=== PATIENT | male | born 1970 | race Two or more races ===

== ENCOUNTER → 2024-09-24 | Outpatient (CLI) | payer BC, SELFPAY ==
[2024-09-24 09:05] LABS: Collection Type, Urine Clean Catch; Squamous Epithelial Cell,Urine 0 /hpf (0-5)
[2024-09-24 09:31] LABS: Basophils % (Auto) 1 % (0-2.5); Eosinophils # (Auto) 0.1 Thou/mm3 (0.0-0.5); Eosinophils % (Auto) 2 % (0-10); Hematocrit 43.7 % (41.0-53.0); Hemoglobin 13.5 g/dL (13.5-16.0); Immature Granulocytes % (Auto) 0 % (0-0); Immature Granulocytes Auto 0.02 Thou/mm3 (0.00-0.00); Lymphocytes # (Auto) 1.9 Thou/mm3 (1.0-4.8); Lymphocytes % (Auto) 32 % (10-50); Mean Corpuscular HGB Conc 30.9 g/dl (31.0-37.0); Mean Corpuscular Hemoglobin 20.8 pg (25.0-35.0); Mean Corpuscular Volume 67 fL (80-100); Monocytes # (Auto) 0.6 Thou/mm3 (0.0-0.8); Monocytes % (Auto) 10 % (0-12); Neutrophils # (Auto) 3.2 Thou/mm3 (1.8-7.7); Neutrophils % (Auto) 55 % (37-80); Nucleated Red Blood Cell % 0 /100 WBC (0); Platelet Count 325 Thou/mm3 (140-440); RDW Standard Deviation 38.6 fL (35.1-43.9); White Blood Count 5.8 Thou/mm3 (3.8-10.6)
[2024-09-24 09:42] LABS: Glucose Estimated Average 126 mg/dL (80-131)
[2024-09-24 09:59] LABS: Bilirubin,Urine Negative (Negative); Blood,Urine Negative (Negative); Clarity,Urine Clear (Clear/Hazy); Color,Urine Yellow (Lt Yel-Yel); Glucose, Urine Negative (Negative); Ketones,Urine Negative (Negative); Leukocyte Esterase,Urine Negative (Negative); Nitrite,Urine Negative (Negative); Protein,Urine Negative (Neg - Trace); RBC,Urine 2 /hpf (0-3); Specific Gravity,Urine 1.022 (1.001-1.035); Urobilinogen,Urine Negative mg/dL (0.0-1.0); WBC,Urine < 1 /hpf (0-5)
[2024-09-24 10:02] LABS: Alanine Aminotransferase 24 U/L (10-49); Albumin, Serum 4.6 gm/dL (3.5-5.0); Albumin/Globulin Ratio 1.7 (1.2-2.2); Anion Gap 9 (7-16); Aspartate Amino Transferase 18 U/L (0-34); BUN/Creatinine Ratio 19 Ratio (12-20); Bilirubin,Total 0.4 mg/dL (0.3-1.2); Blood Urea Nitrogen 17 mg/dL (9-23); Calcium 10.1 mg/dL (8.3-10.6); Calcium (Corrected) 10.1 mg/dL (8.5-10.1); Carbon Dioxide 27.5 mMol/L (20.0-31.0); Cardiac Risk Estimate 4.2 RATIO (4.0-6.7); Chloride 106 mMol/L (98-107); Cholesterol 175 mg/dL (132-200); Creatinine (Component) 0.9 mg/dL (0.6-1.3); Globulin 2.7 gm/dL (2.3-3.5); Glucose 113 mg/dL (74-106); HDL Cholesterol 42 mg/dL (40-60); LDL Cholesterol,Calculated 92 mg/dL (0-130); Osmolality,Calculated 285 (275-295); Potassium 4.1 mMol/L (3.4-5.1); Sodium 142 mMol/L (136-145); Total Protein 7.3 gm/dL (5.7-8.2); Triglycerides 204 mg/dL (30-150); Uric Acid 6.6 mg/dL (3.7-9.2); eGFR > 60 See Note
[2024-09-24 10:13] LABS: Alkaline Phosphatase 66 U/L (46-116)
[2024-09-24 13:01] LABS: Cocci Serology, IgM Negative (Negative)
[2024-09-24 17:14] LABS: Path Review Blood Smear Sent to Pathologist
[2024-09-26 10:49] LABS: Cocci Serology, IgG Negative (Negative)
== END | disposition home or self-care (01) ==
LOC: COPL 08:21
PROVIDERS: PCP Family Medicine; Referring Provider Family Medicine; Visit Provider Family Medicine
DX: Z00.00 Encounter for general adult medical examination without abnormal findings (principal); I10 Essential (primary) hypertension; E78.2 Mixed hyperlipidemia; M10.9 Gout, unspecified; Z83.3 Family history of diabetes mellitus
CPT/HCPCS: 36415; 80053; 80061; 81001; 83036; 84550; 85025; 86331; 86635

== ENCOUNTER → 2025-02-04 | Outpatient (CLI) | payer BC, SELFPAY ==
[2025-02-04 10:07] LABS: Collection Type, Urine Clean Catch; Squamous Epithelial Cell,Urine 0 /hpf (0-5)
[2025-02-04 10:27] LABS: Basophils # (Auto) 0.1 Thou/mm3 (0.0-0.2); Basophils % (Auto) 1 % (0-2.5); Eosinophils # (Auto) 0.5 Thou/mm3 (0.0-0.5); Eosinophils % (Auto) 9 % (0-10); Hematocrit 44.0 % (41.0-53.0); Hemoglobin 13.8 g/dL (13.5-16.0); Immature Granulocytes Auto 0.01 Thou/mm3 (0.00-0.00); Lymphocytes # (Auto) 1.6 Thou/mm3 (1.0-4.8); Lymphocytes % (Auto) 33 % (10-50); Mean Corpuscular HGB Conc 31.4 g/dl (31.0-37.0); Mean Corpuscular Hemoglobin 21.3 pg (25.0-35.0); Mean Corpuscular Volume 68 fL (80-100); Monocytes # (Auto) 0.4 Thou/mm3 (0.0-0.8); Monocytes % (Auto) 9 % (0-12); Neutrophils # (Auto) 2.4 Thou/mm3 (1.8-7.7); Neutrophils % (Auto) 48 % (37-80); Nucleated Red Blood Cell # 0.00 Thou/mm3 (0.00-0.00); Nucleated Red Blood Cell % 0 /100 WBC (0); Platelet Count 258 Thou/mm3 (140-440); RDW Standard Deviation 39.3 fL (35.1-43.9); Red Blood Count 6.47 Miln/mm3 (4.50-5.90); White Blood Count 5.0 Thou/mm3 (3.8-10.6)
[2025-02-04 10:32] LABS: Bilirubin,Urine Negative (Negative); Blood,Urine Negative (Negative); Clarity,Urine Clear (Clear/Hazy); Color,Urine Yellow (Lt Yel-Yel); Glucose, Urine Negative (Negative); Ketones,Urine Negative (Negative); Leukocyte Esterase,Urine Negative (Negative); Nitrite,Urine Negative (Negative); PH,Urine 6.0 (5.0-7.0); Protein,Urine Negative (Neg - Trace); RBC,Urine < 1 /hpf (0-3); Specific Gravity,Urine 1.020 (1.001-1.035); Urobilinogen,Urine Negative mg/dL (0.0-1.0); WBC,Urine < 1 /hpf (0-5)
[2025-02-04 10:38] LABS: Alanine Aminotransferase 28 U/L (10-49); Albumin, Serum 4.6 gm/dL (3.5-5.0); Albumin/Globulin Ratio 1.6 (1.2-2.2); Alkaline Phosphatase 58 U/L (46-116); Anion Gap 9 (7-16); Aspartate Amino Transferase 24 U/L (0-34); BUN/Creatinine Ratio 14 Ratio (12-20); Bilirubin,Total 0.3 mg/dL (0.3-1.2); Blood Urea Nitrogen 13 mg/dL (9-23); Calcium 10.1 mg/dL (8.3-10.6); Calcium (Corrected) 10.1 mg/dL (8.5-10.1); Carbon Dioxide 29.5 mMol/L (20.0-31.0); Cardiac Risk Estimate 4.7 RATIO (4.0-6.7); Chloride 107 mMol/L (98-107); Cholesterol 178 mg/dL (132-200); Creatinine (Component) 0.9 mg/dL (0.6-1.3); Globulin 2.9 gm/dL (2.3-3.5); Glucose 112 mg/dL (74-106); HDL Cholesterol 38 mg/dL (40-60); LDL Cholesterol,Calculated 92 mg/dL (0-130); Osmolality,Calculated 289 (275-295); Potassium 4.4 mMol/L (3.4-5.1); Sodium 145 mMol/L (136-145); Total Protein 7.5 gm/dL (5.7-8.2); Triglycerides 241 mg/dL (30-150); Uric Acid 7.5 mg/dL (3.7-9.2); eGFR > 60 See Note
[2025-02-04 10:40] LABS: Glucose Estimated Average 117 mg/dL (80-131); Hemoglobin A1C 5.7 % Hgb (4.8-6.0)
== END | disposition home or self-care (01) ==
LOC: COPL 09:13
PROVIDERS: PCP Family Medicine; Referring Provider Family Medicine; Visit Provider Family Medicine
DX: Z00.00 Encounter for general adult medical examination without abnormal findings (principal); I10 Essential (primary) hypertension; M10.9 Gout, unspecified
CPT/HCPCS: 36415; 80053; 80061; 81001; 83036; 84550; 85025

== ENCOUNTER → 2025-04-10 | Outpatient (CLI) | payer BC, SELFPAY ==
[2025-04-10 09:29] LABS: Basophils # (Auto) 0.0 Thou/mm3 (0.0-0.2); Basophils % (Auto) 1 % (0-2.5); Eosinophils # (Auto) 0.4 Thou/mm3 (0.0-0.5); Eosinophils % (Auto) 8 % (0-10); Hematocrit 42.2 % (41.0-53.0); Hemoglobin 13.0 g/dL (13.5-16.0); Immature Granulocytes Auto 0.01 Thou/mm3 (0.00-0.00); Lymphocytes # (Auto) 1.3 Thou/mm3 (1.0-4.8); Lymphocytes % (Auto) 27 % (10-50); Mean Corpuscular HGB Conc 30.8 g/dl (31.0-37.0); Mean Corpuscular Hemoglobin 20.7 pg (25.0-35.0); Mean Corpuscular Volume 67 fL (80-100); Monocytes # (Auto) 0.5 Thou/mm3 (0.0-0.8); Monocytes % (Auto) 10 % (0-12); Neutrophils # (Auto) 2.7 Thou/mm3 (1.8-7.7); Neutrophils % (Auto) 55 % (37-80); Nucleated Red Blood Cell # 0.00 Thou/mm3 (0.00-0.00); Nucleated Red Blood Cell % 0 /100 WBC (0); Platelet Count 282 Thou/mm3 (140-440); RDW Standard Deviation 36.9 fL (35.1-43.9); Red Blood Count 6.28 Miln/mm3 (4.50-5.90); White Blood Count 4.9 Thou/mm3 (3.8-10.6)
[2025-04-10 09:51] LABS: Carcinoembryonic Antigen 20.1 ng/mL (0.0-5.0)
--- NOTE | 2025-04-10 09:58 | XR_ITS ---
Examination: CT chest with intravenous contrast CT abdomen with intravenous contrast CT pelvis with intravenous contrast 2-D coronal and sagittal reconstructions Time of exam: April 10, 2025, 1017 hours INDICATIONS: Abnormal colonoscopy this month, staging CTDI: vol (mGy) : 13.2 DLP: (mGycm): 603 Technique: Multiple axial images of the chest, abdomen and pelvis with intravenous contrast, 3.0 mm slice thickness. Images obtained post intravenous injection Isovue 370 60 cc. 2-D sagittal and coronal reconstructions. Low dose protocols were performed. One or more of the following dose reduction techniques were used; automated exposure control, adjustment of the mA and/or KV according to patient size, use of iterative reconstruction technique. Findings: No thoracic aortic aneurysm dilatation Pulmonary artery segments are not enlarged no pulmonary artery filling defects. No paratracheal tracheobronchial or bronchopulmonary adenopathy. 2 mm pulmonary nodule left upper lobe 14 mm pulmonary nodule left lower lobe 3 mm pulmonary nodule right lower lobe No pneumonia or pulmonary edema Multiple liver lesions, at least 10, the largest in the posterior right lobe of the liver 17 mm Spleen is not enlarged Contracted gallbladder No extrahepatic biliary tract dilatation 16mm left adrenal nodule. 2 mm upper pole right renal calculus 10 mm lower pole right renal calculus Aorta normal size Normal appendix No abdominal or pelvic lymphadenopathy Abnormal thickening of the rectosigmoid, for instance axial image 283 Urinary bladder intact IMPRESSION: Noncalcified pulmonary nodules as above consistent with metastatic pulmonary nodular disease. Multiple hepatic metastases, 16 mm left adrenal nodule, recommend MRI abdomen follow-up pre and postcontrast Abnormal thickening of the rectosigmoid, consider PET CT scan follow-up
[2025-04-10 09:59] LABS: Alanine Aminotransferase 27 U/L (10-49); Albumin, Serum 4.4 gm/dL (3.5-5.0); Albumin/Globulin Ratio 1.8 (1.2-2.2); Alkaline Phosphatase 70 U/L (46-116); Anion Gap 12 (7-16); Aspartate Amino Transferase 29 U/L (0-34); BUN/Creatinine Ratio 16 Ratio (12-20); Bilirubin,Total 0.4 mg/dL (0.3-1.2); Blood Urea Nitrogen 13 mg/dL (9-23); Calcium 9.6 mg/dL (8.3-10.6); Calcium (Corrected) 9.6 mg/dL (8.5-10.1); Carbon Dioxide 25.2 mMol/L (20.0-31.0); Chloride 106 mMol/L (98-107); Creatinine (Component) 0.8 mg/dL (0.6-1.3); Globulin 2.4 gm/dL (2.3-3.5); Glucose 107 mg/dL (74-106); Osmolality,Calculated 285 (275-295); Potassium 4.2 mMol/L (3.4-5.1); Sodium 143 mMol/L (136-145); Total Protein 6.8 gm/dL (5.7-8.2); eGFR > 60 See Note
== END | disposition home or self-care (01) ==
PROVIDERS: PCP Family Medicine; Referring Provider Specialist; Visit Provider Radiology Diagnostic Radiology
DX: R91.1 Solitary pulmonary nodule (principal); E27.9 Disorder of adrenal gland, unspecified; K63.89 Other specified diseases of intestine; E78.9 Disorder of lipoprotein metabolism, unspecified
CPT/HCPCS: 36415; 71260; 74177; 80053; 82378; 85025; A4649; Q9967

== ENCOUNTER 2025-04-14 13:03 | Outpatient (RCR) | payer BC, SELFPAY ==
--- NOTE | 2025-04-14 14:43 | CTCCONSULT_ITS ---
[facility] [address] [place], [place] [address] Consultation Note Date: 04/14/2025 MR#: [id number] Name: JOSEPHINE ENRIQUE : 1970 Dx: C20 Malignant neoplasm of rectum Attending physician. Marek Trinh MD Referring physician. Idalia Egan MD Reason for consultation. Patient with recent diagnosis of rectal CA referred to the cancer treatment center. History of Present Illness: Patient is a 54-year-old gentleman with irregular bowel movements and passing of blood in stools. Mild anemia with 13.0 was noted on most recent CBC of 04/10/2025. CEA elevated at 20.1 CMP unremarkable in terms of LFTs and RFTs. Underwent fiberoptic colonoscopy and biopsy performed 03/31/[address] Egan. This revealed a rectal mass semicircumferential at 10 cm from anal verge causing partial obstruction. Endoscope then was able to go all the way to the cecum. No additional lesions seen. Final path revealed moderate differentiated adenocarcinoma with no loss of nuclear expression of MMR proteins. Also had upper endoscopy with mild to moderate reactive gastropathy and mild chronic gastritis and GERD but no evidence of atypia dysplasia or malignancy noted in the esophagogastric region. Had chest abdomen pelvis CT 04/10/2025 revealing noncalcified pulmonary nodules multiple hepatic mets 16mm left adrenal nodule. There was also abnormal thickening of the rectosigmoid. Patient reportedly has an appointment to see Dr. Walls [facility] who will eventually do colorectal surgery. Past Medical History: High blood pressure valley fever gout Meds. 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 CV clear to auscultation heart regular rate and rhythm ABD: Soft no organomegaly or tenderness EXT: No signs of clubbing or edema Assessment:1. Patient with adenocarcinoma rectosigmoid region 10 cm from the anal no loss of nuclear expression MMR proteins. 2. CT suggests mets involving lung and liver. CEA elevated at 20.1. 3. Will order PET scan. MRI abdomen and pelvis for more definitive staging. 4. Dr. Lal reportedly will schedule port for anticipated chemo, 5. Dr. Rosa medical oncologist t scheduled to see patient soon 6. Awaiting appointment with GI surgeon Dr. Codey Walls at [facility] 7. Will follow. Thank you very much for allowing me to evaluate this patient. Cc: Marek Egan MD Electronically signed by: Khoa Beckwith MD, DABR 04/14/2025 2:41 PM
== END 2025-04-28 23:59 | disposition home or self-care (01) ==
LOC: SCTC 13:03
PROVIDERS: PCP Family Medicine; Referring Provider Specialist; Visit Provider Radiology Therapeutic Radiology
DX: C20 Malignant neoplasm of rectum (principal); R97.0 Elevated carcinoembryonic antigen [CEA]
CPT/HCPCS: 99213; G0463

== ENCOUNTER 2025-05-01 07:55 | Day surgery (SDC) | payer BC, SELFPAY ==
[2025-04-30 09:08] VITALS: BMI 25.5
--- NOTE | 2025-04-30 09:25 | EKG_ITS ---
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
[2025-04-30 10:37] LABS: Basophils # (Auto) 0.1 Thou/mm3 (0.0-0.2); Basophils % (Auto) 1 % (0-2.5); Eosinophils # (Auto) 0.5 Thou/mm3 (0.0-0.5); Eosinophils % (Auto) 8 % (0-10); Hematocrit 40.3 % (41.0-53.0); Hemoglobin 12.3 g/dL (13.5-16.0); Immature Granulocytes Auto 0.01 Thou/mm3 (0.00-0.00); Lymphocytes # (Auto) 1.6 Thou/mm3 (1.0-4.8); Lymphocytes % (Auto) 23 % (10-50); Mean Corpuscular HGB Conc 30.5 g/dl (31.0-37.0); Mean Corpuscular Hemoglobin 21.1 pg (25.0-35.0); Mean Corpuscular Volume 69 fL (80-100); Monocytes # (Auto) 0.7 Thou/mm3 (0.0-0.8); Monocytes % (Auto) 10 % (0-12); Neutrophils # (Auto) 4.0 Thou/mm3 (1.8-7.7); Neutrophils % (Auto) 58 % (37-80); Nucleated Red Blood Cell # 0.00 Thou/mm3 (0.00-0.00); Nucleated Red Blood Cell % 0 /100 WBC (0); Platelet Count 313 Thou/mm3 (140-440); RDW Standard Deviation 37.9 fL (35.1-43.9); Red Blood Count 5.83 Miln/mm3 (4.50-5.90); White Blood Count 7.0 Thou/mm3 (3.8-10.6)
[2025-04-30 10:45] LABS: INR 1.0 (0.9-1.3); Partial Thromboplastin Time 31.4 Seconds (22.0-36.0); Prothrombin Time 10.7 Seconds (9.0-12.2)
[2025-04-30 10:51] LABS: Alanine Aminotransferase 29 U/L (10-49); Albumin, Serum 4.5 gm/dL (3.5-5.0); Albumin/Globulin Ratio 1.7 (1.2-2.2); Alkaline Phosphatase 82 U/L (46-116); Anion Gap 9 (7-16); Aspartate Amino Transferase 34 U/L (0-34); BUN/Creatinine Ratio 15 Ratio (12-20); Bilirubin,Total 0.5 mg/dL (0.3-1.2); Blood Urea Nitrogen 15 mg/dL (9-23); Calcium 9.3 mg/dL (8.3-10.6); Calcium (Corrected) 9.3 mg/dL (8.5-10.1); Carbon Dioxide 27.1 mMol/L (20.0-31.0); Chloride 106 mMol/L (98-107); Creatinine (Component) 1.0 mg/dL (0.6-1.3); Estimated Creatinine Clearance 77.1 mL/min (>60); Globulin 2.7 gm/dL (2.3-3.5); Glucose 107 mg/dL (74-106); Osmolality,Calculated 283 (275-295); Potassium 3.8 mMol/L (3.4-5.1); Sodium 142 mMol/L (136-145); Total Protein 7.2 gm/dL (5.7-8.2); eGFR > 60 See Note
[2025-04-30 12:35] LABS: Path Review Blood Smear Sent to Pathologist
[2025-05-01] VITALS (8 sets, daily range): BP systolic 102–121; BP diastolic 53–88; PULSE 71–86; RESP 16–22; TEMP 36.1–36.3; O2SAT 96–100; BMI 25.4
--- NOTE | 2025-05-01 09:33 | SUR.PREOP ---
Patient expressed gratitude for prayer before their procedure.
[2025-05-01] MEDS: RINGERS LACTATED 1000 ML 1,000 ML 20 ML IV (09:34)
--- NOTE | 2025-05-01 10:00 | XR_ITS ---
Examination: AP chest single view TECHNIQUE: AP portable supine chest single view Date and time: May 01, 2025, 1004 hours, comparison March 17, 2020 INDICATIONS: Port-A-Cath insertion FINDINGS: Left subclavian Port-A-Cath tip right atrium No pneumothorax IMPRESSION: Left subclavian Port-A-Cath tip right atrium
--- NOTE | 2025-05-01 11:58 | PD.SUROPNT ---
Date of Procedure 05/01/25 Pre Op Diagnosis Carcinoma of the rectum requiring chemotherapy Stricture of veins Post Op Diagnosis Same Procedure Insertion of double-lumen Port-A-Cath for Medcomp through the subclavian vein Findings Patient had a left subclavian vein which was used for insertion of a Port-A-Cath with 2 chambers and 2 lumens Procedure Description After the patient was brought to the operating room he was placed in supine position. Site-Rite ultrasound was used to identify the left subclavian vein and I chose this for insertion of the Port-A-Cath. After the patient's chest and neck were prepped with chloreprep solution and draped I used a mini stick to get into the left subclavian vein. Then I passed a small guidewire measuring 0.018 inch in diameter into the vein. Then this was switched over to a catheter to accommodate larger guidewire measuring 0.035 inches in diameter which was basically a J-wire. Then I used a 10 Salvadorean valved vessel dilator over the guidewire which was then pulled out. Then I introduced a 9.5 Salvadorean polyurethane catheter from the Medcomp and positioned it on the distal part of the superior vena cava. An x-ray was obtained to confirm the position of the tip. The tip was about 27 cm from the insertion site. then I made a small pocket below the entry site on the left chest below the clavicle to accommodate the double port dignity from [facility] After injecting local anesthesia with 1% Xylocaine. Then I tunneled the polyurethane catheter from the entry site to this pocket in the chest wall and I connected it to low-profile Dignity port from [facility] using a catheter lock. There were 2 lumens iin the catheter which was then connected to 2 Port-A-Cath. Excellent blood return was obtained at the end of the procedure and this was flushed with heparinized saline. Then the port was attached to the chest wall muscle using 0 Ethibond sutures. Subcutaneous tissues was closed with 3-0 chromic and the skin by 5-0 nylon stitches. Dressing was applied with Adaptic and 4 x 4 and the patient tolerated the procedure well and left operating room in stable condition. Anesthesia other (General LMA) Implants Double-lumen Port-A-Cath Pathology / specimen None Estimated Blood Loss 30 Surgeon Jenna Grant MD Surgical Staff Operation Date: 05/01/25 10:00 Case Staff Anesthesiologist: Boris Michael
--- NOTE | 2025-05-01 12:01 | SUR.PHASEI ---
tolerating ice chips without difficulty swallowing or n/v
--- NOTE | 2025-05-01 12:10 | SUR.PHASEII ---
report to Stan HURLEY
--- NOTE | 2025-05-01 12:38 | SUR.PHASEII ---
pt awake and alert, breathing unlabored on room air. v/s stable. pt dressing to left upper chest and right upper chest cdi. d/c instructions given with Aminah in room, all questions answered. pt d/c via wheelchair with all belongings.
== END 2025-05-01 12:38 | disposition home or self-care (01) ==
PROVIDERS: PCP Family Medicine; Referring Provider Surgery; Visit Provider Surgery
PROC: (CPT 36571; principal; 2025-05-01 09:45)
DX: C20 Malignant neoplasm of rectum (principal); I87.1 Compression of vein; Z01.810 Encounter for preprocedural cardiovascular examination; I10 Essential (primary) hypertension; M10.9 Gout, unspecified; Z79.899 Other long term (current) drug therapy
CPT/HCPCS: 36571; 36415; 71046; 80053; 85025; 85610; 85730; 93005; A4217; A4649; C1788; C1894; J0131; J1100; J2250; J2405; J2704; J3010; J3490; J7120; J7999; A9270

== ENCOUNTER 2025-07-05 07:36 | Emergency (ER) | payer BC, SELFPAY ==
--- NOTE | 2025-07-05 08:06 | PD.EDABDPN ---
ED Abdominal Pain RME/HPI General Chief Complaint: Abdominal Pain Stated complaint: ABD PAIN 03/08 Time seen by provider: 07/05/25 07:39 Arrival date/time: 07/05/25 07:36 RME / HPI RME / HPI narrative: See [facility] for Dr. Beckwith's HPI Documentation. Related Data Home Medications ?Medication ?Instructions ?Recorded ?Confirmed allopurinol 100 mg tablet 100 mg PO HS 04/16/18 05/01/25 amlodipine 10 mg tablet 1 tab PO QDAY 04/16/18 05/01/25 montelukast 10 mg tablet 10 mg PO QPM 10/28/22 05/01/25 vitamin B complex 1 tab PO QDAY 10/28/22 05/01/25 ascorbic acid (vitamin C) 500 mg 500 mg PO QDAY 04/30/25 05/01/25 tablet (Vitamin C) carvedilol 12.5 mg tablet (Coreg) 12.5 mg PO BID 04/30/25 05/01/25 cholecalciferol (vitamin D3) 50 50 mcg PO QDAY 04/30/25 05/01/25 mcg (2,000 unit) capsule (D3-2000) fluconazole 200 mg tablet 200 mg PO HS 04/30/25 05/01/25 lisinopril 40 mg tablet 40 mg PO BID 04/30/25 05/01/25 morphine 15 mg immediate release 15 mg PO Q4H PRN pain 04/30/25 05/01/25 tablet omega-3 1,050 [id number] 1 cap PO QDAY 04/30/25 05/01/25 oil 1,200 mg capsule (Pratt-3 (with docosapentaenoic acid)) zolpidem 10 mg tablet 10 mg PO HS PRN insomnia 04/30/25 05/01/25 Allergies Allergy/AdvReac Type Severity Reaction Status Date / Time No Known Allergies Allergy Verified 07/05/25 07:39 Review of Systems Review of Systems Systems Reviewed: All systems reviewed, normal except as documented Past Medical History Past Medical History CARDIAC: Positive Cardiac Disorders and Hypertension GASTROINTESTINAL: Positive Colorectal Cancer GENITOURINARY: Positive Genitourinary Disorders and Kidney Stones MUSCULOSKELETAL: Positive Musculoskeletal Disorders and Gout HEMATOLOGIC: Positive Blood Disorders and Anemia OTHER HISTORY: Positive Hospitalization, Chicken Pox, Cancer and Colorectal Cancer Family History FAMILY HISTORY: Positive Family Cardiac Disorders and Family Surgery Social History SMOKING STATUS: Never smoker SUBSTANCE USE: marijuana ALCOHOL: Current ED Exam Narrative Physical exam: See MDM for Dr. Beckwith's HPI Documentation. Course Quality Measures none Orders Category Date Time Status CT Screening NOW Care 07/05/25 08:08 Completed Saline [Insert IV] NOW Care 07/05/25 08:[address] abdomen pelvis w con Stat Exams 07/05/25 08:08 Completed Amylase Stat Lab 07/05/25 08:25 Completed Bilirubin,Direct Stat Lab 07/05/25 08:25 Completed Blood Culture (Lab) Stat Lab 07/05/25 08:25 Received CBC Stat Lab 07/05/25 08:25 Completed CMP [Comprehensive Metabolic Panel] Stat Lab 07/05/25 08:25 Completed CRP [C-Reactive Protein] Stat Lab 07/05/25 08:25 Completed ESR [Sed Rate (ESR)] Stat Lab 07/05/25 08:25 Completed Lactate (Lactic Acid) Stat Lab 07/05/25 08:25 Completed Lipase Stat Lab 07/05/25 08:25 Completed Magnesium Stat Lab 07/05/25 08:25 Completed Procalcitonin Stat Lab 07/05/25 08:25 Completed UA, C/S IF [Urinalysis, C/S if Indicated] Stat Lab 07/05/25 08:28 Completed HYDROmorphone INJ [Dilaudid Inj] Med 07/05/25 08:07 Discontinued 1 mg IVP X1 ONE HYDROmorphone INJ [Dilaudid Inj] Med 07/05/25 11:11 Discontinued 1 mg IVP X1 ONE Ketorolac Inj [Toradol Inj] Med 07/05/25 08:07 Discontinued 30 mg IVP X1 ONE Ondansetron Inj [Zofran Inj] Med 07/05/25 08:07 Discontinued 4 mg IVP X1 ONE Sodium Chloride 0.9% 1000 ml [Ns] 1,000 ml Med 07/05/25 08:07 Discontinued IV 999 mls/hr Vital Signs Vital signs: Vital Signs Temperature 98.0 F 07/05/25 08:11 Pulse Rate 86 07/05/25 08:11 Respiratory Rate 16 07/05/25 08:11 Blood Pressure 117/78 07/05/25 08:11 Pulse Oximetry (%) 99 07/05/25 08:11 Oxygen Delivery Method Room Air 07/05/25 08:11 Abdominal Pain MDM MDM Narrative MDM Narrative:: This section includes all my notes and documentations, including HPI, PE, and ED course. Avtar Beckwith MD HPI: 54-year-old male with severe abdominal pain and vomiting since yesterday. History of rectal cancer. No other complaints. ROS: All negative except as documented in HPI. Physical Exam: General: Alert and oriented. Appears uncomfortable. Eyes: Conjunctivae and lids clear. ENT: No nasal congestion. Neck: Supple. Heart: RRR. Lungs: No respiratory distress. Good air movement. No rhonchi, wheezing, rales. Abdomen: Soft with lower quadrant tenderness. Normal bowel sounds. No distension. No rebound or guarding. Back: No CVA tenderness. Skin: Warm and dry. Neuro: Alert and oriented X 3. I reviewed all diagnostic test results: My review of the abdomen/pelvis CT report is constipation and rectal cancer metastases. Blood tests and urine tests unremarkable. At this point, diagnoses include: Constipation Metastasis from rectal cancer Treatment here included: IVF Zofran 4 mg IV Toradol 30 mg IV Dilaudid 1 mg IV Significant improvement noted. Recommended outpatient treatment. Based on my best medical judgment, made decision no further evaluation or treatment indicated at this time. Patient and understands and agrees to the discharge instructions customized and printed, see below. Discharge instructions from Dr. Beckwith printed for you: ?After extensive evaluation, there is no emergency.? Such as bowel obstruction. -You have severe constipation and rectal cancer with metastases. ? Continue current management for bowel movements and pain. ?To help current constipation and prevent future constipation, increase oral fluid because dehydration cause severe constipation.? Maintain clear urine.? If dark or yellow, increase oral fluid. ?And every day, increase fresh fruits and fresh vegetables and physical exercise. ? Continue current care with your private doctors. ?Seek immediate medical care with worsening or with any concerns. Avtar Beckwith MD Patient data External records reviewed:: [facility] previous records Clinical information provided by:: patient Social determinants that could affect healthcare access:: substance use (marijuana and alcohol use) Patient has the following chronic illnesses:: Rectal cancer. How is presenting disease/condition affected by chronic disease/condition?: exacerbated by Evaluation data The following diagnostics were reviewed and interpreted by me:: lab results and radiology exam(s) Lab and/or radiology exams considered but not ordered:: none Interpretation Summary: I reviewed all diagnostic test results: My review of the abdomen/pelvis CT report is constipation and rectal cancer metastases. Blood tests and urine tests unremarkable. Medications / Prescriptions Medications or Prescriptions considered but not ordered:: none Medication administrations:: Medication Administration History Discontinued Medications Hydromorphone HCl (Hydromorphone Inj 2 Mg/Ml Vial) 1 mg IVP X1 ONE Stop: 07/05/25 08:08 Last Admin: 07/05/25 09:00 Dose: Not Given Documented By: ISHMAEL Non-Admin Reason: Patient Refused Hydromorphone HCl (Hydromorphone Inj 2 Mg/Ml Vial) 1 mg IVP X1 ONE Stop: 07/05/25 11:12 Last Admin: 07/05/25 11:18 Dose: 1 mg Documented By: Sodium Chloride (Ns) 1,000 mls @ 999 mls/hr IV .Q1H1M ONE Stop: 07/05/25 09:07 Last Infusion: 07/05/25 12:00 Dose: Infused Documented By: Admin: 07/05/25 09:59 Dose: 999 mls/hr Documented By: ISHMAEL Ketorolac Tromethamine (Ketorolac Inj 30 Mg/Ml Vial) 30 mg IVP X1 ONE Stop: 07/05/25 08:08 Last Admin: 07/05/25 09:55 Dose: Not Given Documented By: ISHMAEL Non-Admin Reason: Patient Refused Ondansetron HCl (Ondansetron Inj 2 Mg/Ml Inj 2 Ml) 4 mg IVP X1 ONE; Protocol Stop: 07/05/25 08:08 Last Admin: 07/05/25 10:05 Dose: 4 mg Documented By: ISHMAEL Comments: MED SCANNED AND THROWN AWAY, DOCUMENTATION DID NOT SAVE. Treatment here included: IVF Zofran 4 mg IV Toradol 30 mg IV Dilaudid 1 mg IV Consultations Consultation(s) initiated? (list below): No Diagnosis Differential diagnosis abdominal pain: acute appendicitis, calculus of kidney, constipation, diverticulitis, gastroenteritis, pancreatitis and small bowel obstruction Most likely diagnosis given after review of the tests above:: Constipation Metastasis from rectal cancer Admission Indicated Admission indicated?: not indicated Explain why admission is indicated or not indicated:: With significant improvement and no condition needing emergent intervention, there was no indication for admission. Admission Request Was there a request for admission?: No Disposition Plan Disposition Plan: Discharge Discharge Attestation Discharge Attestation: The patient and all family members were given an opportunity to ask questions and understood the discharge instructions. Discharge instructions specifically effects, indications for sooner follow up or return to the emergency department, and the expected course of current diagnosis. Patient condition: Stable Discharge Plan Plan Patient Disposition: HOME (Self Care) Prescriptions/Referrals Prescriptions/Med Rec: No Action allopurinol 100 mg Tablet 100 mg PO HS amlodipine 10 mg Tablet 1 tab PO QDAY montelukast 10 mg Tablet 10 mg PO QPM vitamin B complex Tablet 1 tab PO QDAY morphine 15 mg tablet 15 mg PO Q4H PRN (Reason: pain) fluconazole 200 mg tablet 200 mg PO HS lisinopril 40 mg tablet 40 mg PO BID carvedilol [Coreg] 12.5 mg tablet 12.5 mg PO BID Rx Instructions: must administer with a meal/food zolpidem 10 mg tablet 10 mg PO HS PRN (Reason: insomnia) cholecalciferol (vitamin D3) [D3-2000] 50 mcg (2,000 unit) capsule 50 mcg PO QDAY ascorbic acid (vitamin C) [Vitamin C] 500 mg tablet 500 mg PO QDAY Pratt-3 (with dpa) 1,050-1,200 mg capsule 1 cap PO QDAY Referrals: Marek Trinh MD [Primary Care Provider, Family Practice] - In 1 week Problem List Clinical Impression: Constipation, Metastasis from rectal cancer Patient/Caregiver Discharge Instructions Discharge Activity: activity as tolerated Education Materials: ED Constipation (Adult) Additional Instructions: Discharge instructions from Dr. Beckwith printed for you: ?After extensive evaluation, there is no emergency.? Such as bowel obstruction. -You have severe constipation and rectal cancer with metastases. ? Continue current management for bowel movements and pain. ?To help current constipation and prevent future constipation, increase oral fluid because dehydration cause severe constipation.? Maintain clear urine.? If dark or yellow, increase oral fluid. ?And every day, increase fresh fruits and fresh vegetables and physical exercise. ? Continue current care with your private doctors. ?Seek immediate medical care with worsening or with any concerns. Print Language: Korean Stand Alone Forms: [employer] Award Info., Patient Portal Info Letter
--- NOTE | 2025-07-05 08:08 | XR_ITS ---
Examination: CT abdomen with intravenous contrast CT pelvis with intravenous contrast 2-D coronal reconstructions 2-D sagittal reconstructions Date and time of exam: July 05, 2025, 1153 hours INDICATIONS: Lower abdominal pain today, diagnosis malignant neoplasm of the colon undergoing chemotherapy COMPARISON: 04/10/2025. CTDI: vol (mGy) 12.4 DLP: (mGycm) 508 Technique: Multiple axial sections of the abdomen and pelvis have been obtained. 64 slice high-resolution scanner used. 3 mm axial sections have been obtained, post intravenous injection 60 cc Isovue-370 2-D sagittal, coronal reconstructions obtained. Low dose protocols were performed. One or more of the following dose reduction techniques were used; automated exposure control, adjustment of the mA and/or KV according to patient size, use of iterative reconstruction technique. Findings: 12 mm pulmonary nodule left lower lobe Again noted multiple hepatic metastases A posterior right lobe liver lesion measures 20 mm compared to 12 mm. No major change in remaining liver lesions No gallstones No common bile duct stones No hydronephrosis Aorta normal size Abundant stool in the right colon No pericecal inflammatory change No change in abnormal thickening of the rectosigmoid Urinary bladder intact Moderate osteopenia IMPRESSION: 12 mm pulmonary nodule left lower lobe, please see the CT chest report 04/10/2025 Hepatic metastases, at least one of the hepatic lesions has increased in size compared to the April 10, 2025 exam Negative for pancreatitis No bowel obstruction Abundant stool throughout the entire colon No change in abnormal thickening of the rectosigmoid ortega
[2025-07-05 08:11] VITALS: BP 117/78; PULSE 86; RESP 16; TEMP 36.7; O2SAT 99; BMI 24.3
[2025-07-05 08:36] LABS: Collection Type, Urine Clean Catch; Squamous Epithelial Cell,Urine 0 /hpf (0-5)
[2025-07-05 08:40] LABS: Lactate (Lactic Acid) 1.1 mMol/L (0.4-2.0)
[2025-07-05 08:47] LABS: Basophils # (Auto) 0.0 Thou/mm3 (0.0-0.2); Basophils % (Auto) 0 % (0-2.5); Eosinophils # (Auto) 0.1 Thou/mm3 (0.0-0.5); Eosinophils % (Auto) 2 % (0-10); Hematocrit 40.5 % (41.0-53.0); Hemoglobin 12.3 g/dL (13.5-16.0); Immature Granulocytes Auto 0.01 Thou/mm3 (0.00-0.00); Lymphocytes # (Auto) 1.2 Thou/mm3 (1.0-4.8); Lymphocytes % (Auto) 24 % (10-50); Mean Corpuscular HGB Conc 30.4 g/dl (31.0-37.0); Mean Corpuscular Hemoglobin 21.0 pg (25.0-35.0); Mean Corpuscular Volume 69 fL (80-100); Monocytes # (Auto) 0.6 Thou/mm3 (0.0-0.8); Monocytes % (Auto) 12 % (0-12); Neutrophils # (Auto) 3.0 Thou/mm3 (1.8-7.7); Neutrophils % (Auto) 62 % (37-80); Nucleated Red Blood Cell # 0.00 Thou/mm3 (0.00-0.00); Nucleated Red Blood Cell % 0 /100 WBC (0); Platelet Count 270 Thou/mm3 (140-440); RDW Standard Deviation 45.1 fL (35.1-43.9); Red Blood Count 5.85 Miln/mm3 (4.50-5.90); White Blood Count 4.8 Thou/mm3 (3.8-10.6)
[2025-07-05 08:51] LABS: Bilirubin,Urine Negative (Negative); Blood,Urine Negative (Negative); Clarity,Urine Clear (Clear/Hazy); Color,Urine Lt-Yellow (Lt Yel-Yel); Culture Indicated,Urine Not Indicated; Glucose, Urine Negative (Negative); Ketones,Urine Negative (Negative); Leukocyte Esterase,Urine Negative (Negative); Nitrite,Urine Negative (Negative); PH,Urine 6.5 (5.0-7.0); Protein,Urine Negative (Neg - Trace); RBC,Urine 1 /hpf (0-3); Specific Gravity,Urine 1.024 (1.001-1.035); Urobilinogen,Urine Negative mg/dL (0.0-1.0); WBC,Urine 1 /hpf (0-5)
[2025-07-05 09:12] LABS: Sed Rate (ESR) 71 mm/hr (0-20)
[2025-07-05 09:16] LABS: Alanine Aminotransferase 21 U/L (10-49); Albumin, Serum 4.9 gm/dL (3.5-5.0); Albumin/Globulin Ratio 1.5 (1.2-2.2); Alkaline Phosphatase 87 U/L (46-116); Amylase 78 U/L (30-118); Anion Gap 10 (7-16); Aspartate Amino Transferase 36 U/L (0-34); BUN/Creatinine Ratio 19 Ratio (12-20); Bilirubin,Direct 0.1 mg/dL (0.0-0.3); Bilirubin,Total 0.5 mg/dL (0.3-1.2); Blood Urea Nitrogen 17 mg/dL (9-23); C-Reactive Protein 0.6 mg/dL (0.0-0.9); Calcium 9.8 mg/dL (8.3-10.6); Calcium (Corrected) 9.8 mg/dL (8.5-10.1); Carbon Dioxide 26.8 mMol/L (20.0-31.0); Chloride 107 mMol/L (98-107); Creatinine (Component) 0.9 mg/dL (0.6-1.3); Estimated Creatinine Clearance 85.7 mL/min (>60); Globulin 3.3 gm/dL (2.3-3.5); Glucose 102 mg/dL (74-106); Lipase 49 U/L (12-53); Magnesium 2.2 mg/dL (1.6-2.6); Osmolality,Calculated 288 (275-295); Potassium 4.3 mMol/L (3.4-5.1); Procalcitonin < 0.04 ng/ml (0.0-0.49); Sodium 144 mMol/L (136-145); Total Protein 8.2 gm/dL (5.7-8.2); eGFR > 60 See Note
[2025-07-05] MEDS: SODIUM CHLORIDE 0.9% 1000 ML 1,000 ML 999 ML IV (09:59)
[2025-07-05] MEDS: ONDANSETRON INJ 2 MG/ML INJ 2 ML 4 MG IVP (10:05)
[2025-07-05 10:22] VITALS: BP 119/85; PULSE 74; RESP 18; TEMP 36.4; O2SAT 100
[2025-07-05] MEDS: HYDROmorphone INJ 2 MG/ML VIAL 1 MG IVP (11:18)
[2025-07-05 12:48] VITALS: BP 122/79; PULSE 71; RESP 18; TEMP 36.7; O2SAT 97
[2025-07-05 14:09] VITALS: BP 131/92; PULSE 73; RESP 16; TEMP 36.4; O2SAT 98
== END 2025-07-05 14:26 | disposition home or self-care (01) ==
PROVIDERS: Emergency Provider Emergency Medicine; PCP Family Medicine
DX: C78.7 Secondary malignant neoplasm of liver and intrahepatic bile duct (principal); C20 Malignant neoplasm of rectum; K59.00 Constipation, unspecified
CPT/HCPCS: 36415; 74177; 80053; 81001; 82150; 82248; 83605; 83690; 83735; 84145; 85025; 85652; 86140; 87040; 96361; 96374; 96375; 99284; A4649; J1171; J2405; J7030; Q9967